=== PATIENT | female | born 1955 | race Caucasian/White ===

== ENCOUNTER → 2016-10-22 | Outpatient (CLI) | payer OTHER ==
--- NOTE | 2016-10-22 13:42 | DI ---
History: Hip pain. 5 view study. Prior examination 05/25/16. Findings: 3 level fusion with laminectomy of or L5-S1. Laminectomy extends from L3-L5. The left hip shows good acetabular coverage with preservation of joint space. Likewise on the right, there is good acetabular coverage.. There is a small stable calcification in the lateral aspect of th e femoral head, possibly corresponding with the labrum. It is unchanged from prior examination and me asures about 1 x 4 mm. Left hip shows good acetabular coverage of joint space preservation. Impression: No significant arthritic change is seen on either hip although there may be some labral c alcification on the right side, unchanged from prior study. Prior low back surgery, described in detail above
== END ==
LOC: ORTHO 12:10
PROVIDERS: ATTEND Orthopaedic Surgery
DX: M25.551 Pain in right hip (principal); M25.552 Pain in left hip; M70.62 Trochanteric bursitis, left hip; M70.61 Trochanteric bursitis, right hip
CPT/HCPCS: 73502

== ENCOUNTER → 2017-01-21 | Outpatient (CLI) | payer OTHER ==
--- NOTE | 2017-01-21 16:55 | DI ---
LUMBAR SPINE SERIES, 01/21/2017 1:05 PM: Clinical History: Lumbar pain. Previous Exam: 11/01/2014. Upright AP and lateral and upright lateral flexion and extension views are submitted. The vertebral b odies are of normal height and size. The patient is status post laminectomies from L3-L5 with anterio r and posterior fusions at L4-5 and L5-S1. Severe disc space narrowing is present at L2-3 and L3-4 an d these are narrower than on the previous study. In addition, marked sclerosis is developed in the an terior half of the L2 and L3 vertebral bodies at the L2-3 disc space. There is a grade 1 spondylolist hesis at L3-4. No instability is noted with flexion and extension maneuvers. The remaining pedicles a re normal. Extensive degenerative arthritic changes are present bilaterally in the L2-3 apophyseal uche ints. Both SI joints are normal. Readin. Status post laminectomies from L3-L5 with anterior and posterior fusions at L4-5 and L5-S1. Poste rior fusions are accomplished with metallic struts transfixed with pedicle screws between L4 and S1. 2. Progressive severe disc space narrowing has developed a L2-3 and L3-4. There is a grade 1 spondyl olisthesis at L3-4 but there is no instability with flexion and extension maneuvers. More sclerosis h as developed in the anterior aspect of the disc space at L2-3, but no motion is documented with flexi on and extension maneuvers.
--- NOTE | 2017-01-21 17:44 | DI ---
THORACIC AND LUMBAR MYELOGRAM, 01/21/2017 1:05 PM: Clinical History: Thoracic and low back pain. Previous Exam: 03/26/2016. A "time out" session verified the patient's name and date of . Informed signed consent was then obtained for this procedure. The patient was informed of benefits and risks, to include but not be li mited to: allergies to medications (skin preparation agents, local anesthetic, and contrast agent), i nfection, and "spinal" headaches. The lower back was prepped with ChloraPrep with Tint. 1% lidocaine without epinephrine was used for intradermal and subcutaneous local anesthesia. With fluoroscopy, a 2 2 gauge spinal needle introduced into the spinal canal in the midline over the body of L5 with a sing le pass that revealed droplets of clear colorless CSF. 10 ml of Omipaque 300 was injected into the sp inal canal with fluoroscopic monitoring. Spot films and overhead films of the thoracic and lumbar spi ne were obtained and the patient was transferred to the CT scan suite for the CT myelogram. Following the CT scan, the patient was observed in the department for approximately 1 hour. The patie nt was then discharged home with a laundry route driver and was instructed to minimize activity for the rest of the day. The patient was also instructed to push fluids for the remainder of the day and to sleep on an extra pillow with the head up if possible. The patient was advised to watch for signs of an infection (including but not limited to: redness, swelling, fever) or an unusually severe headache. The patien t was instructed to either contact the x-ray department directly or to report to the Emergency Room i mmediately if problems arose. THORACIC MYELOGRAM: The thoracic cord has a normal caliber. There are no nerve root sleeve amputation is noted although t he left side is not as well visualized as the right side because of artifacts from the patient's kuldip sts. There are anterior extradural defects at least from T5-6 T11-12 consistent with bulging but not herniated discs. LUMBAR MYELOGRAM: The patient is status post laminectomies from L3-L5 with anterior and posterior fusions at L4-5 and L 5-S1. There is no significant anterior extradural defect at T12-L1. There are anterior extradural def ects at L1-2 through L3-4 without nerve root sleeve amputations consistent with bulging but not herni ated discs. There is a grade 1 spondylolisthesis at L3-4. This or nerve root sleeve amputations at L4 -5 and L5-S1. Readin. The thoracic cord is normal in appearance. There are bulging but not herniated discs from at leas t T5-6 through T11-12. The T12-L1 disc space is normal. 2. Status post anterior and posterior fusions at L4-5 and L5-S1 with laminectomies from L3-L5. There is no canal stenosis and there are no nerve root sleeve amputations at L4-5 and L5-S1. 3. There are bulging but not herniated discs without canal stenosis at L1-2 through L3-4. L3-4 has a grade 1 spondylolisthesis.
--- NOTE | 2017-01-21 21:00 | DI ---
CT THORACIC SPINE SCAN WITH INTRATHECAL CONTRAST, 01/21/2017 1:05 PM : Clinical History: Thoracic back pain. Previous Exam: 03/26/2016. Scans are obtained from C6 to the mid body of L1 with intrathecal contrast. Sagittal and coronal refo rmatted images are generated.Curved coronal reformatted images and axial reformatted images angled th rough the disc spaces are also performed. The vertebral bodies are of normal height and size. There is moderate to severe disc space narrowing at every thoracic level. There are no fractures. Posterior alignment and posterior elements are kim l. Pedicles are normal. Paravertebral soft tissue planes are normal. The C6-7 through T2-3 disc spaces are normal. T3-4 through T11-12 disc spaces all have bulging but no t herniated discs without canal or neural foraminal stenosis. On the dorsal aspect of the canal on th e curved coronal images, the dorsal spinal arteries in the artery of Adamkiewicz are visualized and t hey are normal. The ventral spinal arteries are seen from approximately T8-T12 and those arteries are normal. There is no intradural extramedullary lesion. READIN. The thoracic cord and the conus medullaris are normal. There is no evidence of an intradural mass or tumor, and there is no intradural extramedullary lesion. 2. The disc spaces from T3-4 through T11-12 all have mild bulging but not herniated discs without ca nal or neural foraminal stenosis. 3. The disc spaces from C6-7 through T2-3 are normal.
--- NOTE | 2017-01-21 21:35 | DI ---
CT LUMBAR SPINE SCAN WITH INTRATHECAL CONTRAST, 01/21/2017 1:05 PM : Clinical History: Lumbar pain. Previous Exam: 03/26/2016. Scans are obtained from the mid body of T-12 to S4. without IV contrast. Sagittal and coronal reform atted images are generated. A metal artifact reduction sequence was also performed between the mid layo dy of L3 and S3. Sagittal and coronal reformatted images were also obtained from the sequence. The vertebral bodies are of normal height and size. There are laminectomies from L3-L5 with anterior and posterior fusions at L4-5 and L5-S1. Posterior fusions are accomplished with metallic struts dunbar sfixed with pedicle screws between L4 and S1 as well as bone grafts. The anterior and posterior fusio ns are solid. There is moderate disc space narrowing at T12-L1 and L1-2 with severe narrowing at L2-3 and L3-4. There is a grade 1 spondylolisthesis at L3-4. Degenerative arthritic changes are present i n both sacroiliac joints. T11-12 disc space has a bulging but not herniated disc without canal or neural foraminal stenosis. Th e T12-L1 disc space is normal. L1-2 has a very mild circumferentially bulging but not herniated disc and L2-3 has a larger bulging disc. There is no canal or neural foraminal stenosis at either level. L 3-4 has a bulging but not herniated disc without canal or neural foraminal stenosis with a grade 1 sp ondylolisthesis. The L4-5 and L5-S1 disc spaces show no canal stenosis or neural foraminal stenosis. On the coronal metal artifact reduction sequence, there is "clumping" of the nerve roots on the left side probably the S1 and S2 nerve roots and suggestion of similar clumping on the right side. 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 READIN. Status post laminectomies from L3-L5 with anterior and posterior fusions at L4-5 and L5-S1. The a nterior and posterior fusions are solid. There is no canal or neural foraminal stenosis at L4-5 or L5 -S1. There is clumping between the L4 and L5 levels with what probably are the left S1 and S2 nerve r oots. Similar changes are present on the right side and these findings are consistent with arachnoidi tis. 2. There is a grade 1 spondylolisthesis at L3-4 with a bulging but not herniated disc. There is no c anal or significant neural foraminal stenosis. 3. T11-12, L1-2, and L2-3 disc spaces have bulging but not herniated discs without canal or neural f oraminal stenosis. 4. The T12-L1 disc space is normal.
== END ==
LOC: RAD 13:02
PROVIDERS: ATTEND Neurological Surgery
DX: M54.5 Low back pain (principal); M43.16 Spondylolisthesis, lumbar region; M54.6 Pain in thoracic spine; Z98.1 Arthrodesis status
CPT/HCPCS: 72114; 72129; 72132; 72255; 72265

== ENCOUNTER → 2017-01-26 | Outpatient (CLI) | payer OTHER ==
--- NOTE | 2017-01-26 13:44 | DI ---
MRI LUMBAR SPINE SCAN WITHOUT IV CONTRAST, 01/26/2017 11:11 AM: Clinical History: Lumbar pain. Previous Exam: 09/22/2016. Technique: Sagittal and axial T2 weighted; sagittal T1 weighted and T2 STIR; and axial PD. There are extensive metallic artifacts in the lower lumbar spine at the location of the previous post erior fusion at L4-5 and L5-S1. The artifacts are most significant on the right side suggesting this patient had stainless steel implants in that she had a second procedure with replacement of the hardw are on the left side with titanium screws. The vertebral bodies from T9-L3 are of normal height and s ize. There are substantial artifacts involving L4-S1 that the integrity of those vertebral bodies can not be assessed. There is disc space narrowing at every level between T9-10 through L2-3 and probably at L3-4. The cord terminates at T12-L1, and the conus medullaris is normal. The T9-10 through T11-12 disc spaces show circumferentially bulging but not herniated discs without canal or neural foraminal stenosis. The T12-L1 disc space is normal. L1-2 has a circumferentially bulging but not herniated di sc without canal or neural foraminal stenosis with moderate degenerative changes of the apophyseal uche ints. L2-3 has a circumferentially bulging but not herniated disc without canal or right neural james inal stenosis. There is left neural foraminal stenosis and there are degenerative arthritic changes o f the apophyseal joints. The L3-4, L4-5 and L5-S1 levels cannot be evaluated because of the extensive metallic artifacts. Readin. Status post fusions at L4-5 and L5-S1. There are extensive metallic artifact suggesting the hardw are on the right side probably consists of stainless steel in the hardware in the left side is titani um. The disc spaces and the canal cannot be evaluated at these levels and at L3-4 because of the kari facts. 2. There is a bulging but not herniated disc at L2-3 without canal or right neural foraminal stenosi s. There is left neural foraminal stenosis. 3. There are bulging but not herniated discs without canal or neural foraminal stenosis at T9-10 thr ough T11-12 and at L1-2. L1-2 has arthritic changes involving the apophyseal joints bilaterally. 4. The T12-L1 disc space is normal.
== END ==
LOC: MRI 11:04
PROVIDERS: ATTEND Neurological Surgery
DX: M54.5 Low back pain (principal); M47.816 Spondylosis without myelopathy or radiculopathy, lumbar region; M47.814 Spondylosis without myelopathy or radiculopathy, thoracic region
CPT/HCPCS: 72148

== ENCOUNTER 2017-02-18 09:01 | Day surgery (SDC) | payer OTHER ==
[~2017-02-18 09:01] MED LIST: BUPivacaine Inj 0.25% PF - 10ml vial IV ONE; Iopamidol Inj 61% 50 ML VIAL IV ONE; TRIAMCINOLONE ACETONIDE 40 MG/1 ML IM ONE
--- NOTE | 2017-02-18 10:26 | GEN.OPNOTE ---
Facet Injection Procedure: Facet Injection with Local Anesthetic and Steriod Procedure Code - Neurosurgery: 48293 : L/S Spine Facet/Med, 1st, 91264 : L/S Spine Facet/Med, 2nd Surgeon: Guilherme Rodriguez -: Consent: Rationale for procedure, nature of procedure, possible risks and benefits were discussed with the patient. Risks including allergic reaction to medications, known effects of steroid medications including transient elevations in blood sugar with aggravation of pre-existing diabetes and remote risk of aseptic necrosis of the hip. Infection or bleeding with potential risk of neurologic injury with weakness, paralysis or were all reviewed with the patient who wished to proceed. Anesthesia, sedation: No intravenous access or sedation was used. Physiologic monitoring of pulse and oxygen saturation was utilized. Procedure: The patient was placed prone on the operating room table, prepped with Chloroprep and sterilely draped. The skin was anesthetized with 1% Buffered Xylocaine. Under fluoroscopic control a 22-gauge needle was advanced L23, and L34 facet joint on the right. Omnipaque was injected under real-time fluoroscopy demonstrating an facet arthrogram. Following this 1 ml of a mixture of kenalog 40mg/ml and Ropivacaine was injected. AP and lateral images of the final needle placement was obtained. The needle was removed and the patient returned to the post procedure recovery room where they were monitored for any side effects. The same was done on the left. Pain assessment: Preprocedure pain []/10, post procedure pain []/10. Discharge instructions: Patient was given a pain log to be filled out and returned. A delayed response to the steroids of 2-5 days was discussed. Diagnosis; Lumbar spondylosis
[2017-02-18 10:54] VITALS: RESP 22; TEMP 98.3
== END 2017-02-18 10:30 | disposition home or self-care (01) ==
LOC: SDSC 09:01
PROVIDERS: ATTEND Pain Medicine Interventional Pain Medicine
DX: M47.816 Spondylosis without myelopathy or radiculopathy, lumbar region (principal)
CPT/HCPCS: 76000

== ENCOUNTER 2017-02-26 16:35 | Emergency (ER) | payer OTHER ==
[2017-02-26] MEDS ORDERED: MEPERIDINE HCL/PF 100 MG/1 ML INJECTION IM ONE (18:24)
[2017-02-26] MEDS ORDERED: PROMETHAZINE 25 MG/1 ML VIAL IM ONE ×2 (18:30→18:33)
--- NOTE | 2017-02-26 19:34 | DI ---
HISTORY: Left hip pain and swelling. FINDINGS: Examination reveals mild demineralization and degenerative arthritic changes. There is no definite evidence of recent fracture or dislocation. IMPRESSION: 1. No acute fracture identified. Clinical correlation is requested. 2. Mild demineralization and degenerative arthritic changes.
--- NOTE | 2017-02-26 20:02 | DI ---
HISTORY: Left hip pain. No known trauma. TECHNIQUE: Contiguous axial images of the left hip were obtained and submitted for interpretation. FINDINGS: There is evidence of moderate joint space narrowing and osteophyte formation in the left h ip. Soft tissue edema is identified in the left hip. There is a possible hematoma adjacent to the g reater trochanter. No displaced fracture is identified. IMPRESSION: 1. Soft tissue edema and possible hematoma without evidence of acute displaced fracture. Nondisplac ed fractures are hard to exclude; if further evaluation is warranted, MRI can be obtained.
[2017-02-26] MEDS ORDERED: oxyCODONE/APAP 10/325 Tab 1 EACH TAB PO SCH (20:45)
[2017-02-26 21:50] VITALS: TEMP 98.4
--- NOTE | 2017-02-27 01:16 | PDOC ---
Hip Injury/Pain HPI - General Chief Complaint: Lower Extremity Problem/Injury Stated Complaint: CHRONIC L HIP PAIN/SWELLING, WORSE LAST WEEKEND Date Seen by Provider: 02/26/17 Time Seen by Provider: 18:00 Source: POSITIVE: Patient Exam Limitations: POSITIVE: No limitations Nurse's Notes Reviewed & Considered: Yes - History of Present Illness Initial Comments: The patient is a 61 year old female. She complains of pain over the lateral and posterior aspect of her left hip for the past week. Patient states that she has a history of chronic left hip pain, present "for years". She also has a history of chronic low back pain for which he takes oxycodone. She has had low back surgery in the past. She states she has diabetes mellitus with neuropathy and decreased sensation in her feet. Patient states that she has a history of asthma and is tapering off prednisone. She had a nerve block for her low back pain one week ago; patient states she has not had any improvement in her chronic back pain. She states she has fallen 5 times since August, but she does not recall any recent falls or trauma. Have you received a tetanus shot in the past 10 years?: Yes Location: Left Hip Timing: REPORTS: Constant Duration: <1 week (Approximately one week) Severity: Moderate Location at Time of Onset: REPORTS: Home Context: DENIES: Fall, Tripped, Slipped, Lost Balance, Fainted, Other Concurrent Injuries: DENIES: Neck, Head, Back, Chest, Abdomen, Extremities, Face , Other Quality: REPORTS: "Pain" Modifying Factors: REPORTS: Other (Pain is exacerbated by direct palpation over lateral aspect of hip and greater trochanter.) Symptoms Prior to Fall: DENIES: Fever, Chills, Diaphoresis, Diaphoresis, Chest Pain, Weakness, Rapid Heart Rate, Nausea, Vomiting, Diarrhea, Dizziness, Light- Headedness, Headache, Seizure, Other Subsequent Symptoms: DENIES: Sensory Loss, Motor Loss, Numbness, Weakness, Bowel / Bladder Problems, Other Similar Symptoms Previously: Yes (history of chronic left hip pain) Recent Care Received: REPORTS: Recently Seen, Treated by MD (As above) Any Prior Injuries Related to Current Complaint?: No - Patient Home Medications Home Medications: Home Medications Duloxetine HCl [Cymbalta] 60 mg PO QAM 04/10/11 Cyclobenzaprine HCl 10 mg PO PRN tab 03/30/13 Albuterol/Ipratrop Neb Soln [Duoneb Neb Soln] 1 unit NEB Q4-6H PRN #30 unit 07/25 Oxygen (O2) 1 unit HS #2 unit 01/21/15 Gabapentin 2 unit PO TID #540 tab 07/10/15 predniSONE Tab [Deltasone Tab] 3 tab PO day one #10 tab 07/30/15 Albuterol Sulfate [Ventolin Hfa] 1 - 2 puff INH Q4-6H #1 inhaler 09/10/15 Montelukast Sodium [Singulair] 1 unit PO QD #90 tab 04/08/16 Tiotropium Sugar Tree [Spiriva] 2 puff INH DAILY inh 05/25/16 Liraglutide [Victoza 3-Asad] 0.6 mg SUBCUT DAILY ml 06/08/16 Lancets 1 each MC BID #180 unit 07/01/16 Hydrocodone/Acetaminophen [Hydrocodon-Acetaminophn 10-325] 1 tab PO Q4-6H #90 tab 09/28/16 Methotrexate Sodium [Methotrexate] 3 tab PO WEEKLY tab 10/22/16 Fluticasone/Vilanterol [Breo Ellipta 100-25 Mcg Inh] Sample #1 12/25/16 Mometasone/Formoterol [Dulera 200 Mcg/5 Mcg Inhaler] Sample #3 12/25/16 Metformin HCl 2 tab PO BID #60 tab 02/01/17 Estrogens,Conjugated [Premarin] 1 unit PO QD #14 tab 02/18/17 Oxycodone HCl/Acetaminophen [Oxycodone-Acetaminophen 10-325] 1 each PO Q4H PRN # 20 tablet 02/26/17 - Patient Allergies Allergies/Adverse Reactions: Allergies Allergy/AdvReac Type Severity Reaction Status Date / Time cefuroxime axetil Allergy Severe ANAPHLAXIS Verified 02/26/17 16:47 [From Ceftin] cephalexin Allergy Severe Anaphylaxis Verified 02/26/17 16:47 Penicillins Allergy Mild RASH Verified 02/26/17 16:47 moxifloxacin HCl Allergy Unknown Anaphylaxis Verified 02/26/17 16:47 [From Avelox] Past Medical History - heen HEENT History: Denies History Additional Cardiovasular History: AAA, Respiratory History: Home Oxygen Use Additional Gastrointestinal History: AAA Genitourinary History: Denies History Endocrine History: Type 2 Diabetes (oral) Musculoskeletal History: Back Pain Prosthesis or Implant: No Additional Musculoskeletal History: DDD Additional Neurological History: CIDP, TREMORS Blood Disorders: Denies History Psychiatric History: Denies History Female Reproductive History: Denies History Obstetrical History: Denies History Cancer History: Denies History In Past Year Been Physically Harmed or Verbally Threatened: No History of MDRO: No Tobacco Use: Never Smoker Alcohol Use: None Substance Use Type: None Previous Surgical History: Yes Type / Date of Surgery: C HYST, LUMBAR FUSION, APPY, RUPTURE COLON REPAIR, INCISIONAL HERNIA REPAIR, DISCECTOMY, LUMBAR FUSION Significant Family History: No pertinent family hx Past Medical History Reviewed: Reviewed - No Changes ROS - Limitations ROS Limitations: No Limitations Constitution: REPORTS: Denies Symptoms Cardiovascular: REPORTS: Denies Cardiac Symptoms Respiratory: REPORTS: Denies Resp Symptoms Neurological: REPORTS: Denies Neuro Symptoms Gastrointestinal: REPORTS: Denies GI Symptoms Endocrine: REPORTS: Denies Symptoms Musculoskeletal: REPORTS: Joint Pain (Left hip) Genitourinary: REPORTS: Denies Symptoms Eyes: REPORTS: Denies Symptoms ENT: REPORTS: Denies Symptoms Skin: REPORTS: Denies Skin Symptoms Lympathic: REPORTS: Denies Lympathic Symptoms Immunologic: POSITIVE: Denies Symptoms Psychiatric: POSITIVE: Denies Psych Symptoms Hip Injury / Pain Exam - General Appearance General Appearance: POSITIVE: Alert, Cooperative, No Acute Distress, No Evidence of Trauma - Lower Extremity Extremities: POSITIVE: Normal ROM, No Pedal Edema, No Obvious Injury to Knee, No Deformity to Knee, Normal Tendon Exam, Hip/Knee Tenderness (Pain on palpation over greater trochanter of left hip. Pain is exacerbated by abduction of left hip.). NEGATIVE: Shortening of Leg, External Rotation of Leg , Hip Pain on Leg Movement, Pedal Edema, Ecchymosis, Erythema, Soft Tissue Injury, Positive David's Sign - HEENT HEENT: POSITIVE: Head Inspection Nml, Eyes Inspection Nml, Ears Inspection Nml, Nose Inspection Nml, Oral/Dental Inspect. Nml, Pharynx Inspect. Nml, PERRL, EOMI - Pupil Size Pupil Size: 4 mm: Bilateral (PERRTL) - Neck/Back Neck: POSITIVE: Normal Inspection, Non-Tender Back: POSITIVE: No CVA Tenderness, No Vertebral Tenderness, Limited ROM, See Diagram. NEGATIVE: Normal Inspection (Well-healed surgical scar over her lumbar spine), Non Tender (Discomfort on firm palpation lower paralumbar musculature), Painless ROM, Vertebral Pt. Tenderness, CVA Tenderness (R), CVA Tenderness (L), Muscle Spasm - Respiratory / CVS Cardiovascular: POSITIVE: Regular Rate and Rhythm, Heart Sounds Normal, Equal Pulses, Strong Pulses, No Murmur, No Gallop, No JVD, No Pulse Deficit Respiratory: POSITIVE: Chest Non Tender, No Ecchymosis, Breath Sounds Normal, No Respiratory Distress Peripheral Pulses: Radial (R): 2+, Radial (L): 2+ - Abdomen Abdomen: Soft: (All Quadrants), Normal Bowel Sounds: (All Quadrants), Denies Tenderness: (All Quadrants), No Splenomegaly: (All Quadrants), No Hepatomegaly: (All Quadrants), No Guarding: (All Quadrants), No Rebound: (All Quadrants), No Palpable Pulse: (All Quadrants), No Palpabale Mass: (All Quadrants), No Distention: (All Quadrants), No Rigidity: (All Quadrants) - Skin Skin: POSITIVE: Color Normal, No Rash, Warm, Dry, Normal Palpation - Neuro/Psych Neuro / Psych: POSITIVE: Oriented x 3, Neuro Grossly Intact, Mood Appropriate, Affect Appropriate Images - Complete Complete: 1 - Pain on palpation over greater trochanter and distribution of trochanteric bursa 2 - Chronic low back pain Hip Injury / Pain Progress - Results Reviewed by me Xrays/CTs/US Reviewed by me: Yes Discussed with Radiologist: Yes Radiology Findings: X-ray left hip normal except for some degenerative changes. CT of left hip shows some soft tissue swelling and radiographically a possible hematoma over the greater trochanter. - Patient's Progress Pain Medication Addressed: POSITIVE: Yes (Patient given Demerol with Phenergan IM with good relief of pain) School/Work Release Addressed: POSITIVE: Not Applicable Re-Examine Time: 20:15 Re-Examine Comment: Patient symptomatically improved on discharge. Status: POSITIVE: Improved, Re-Examined - Consult Counseled: POSITIVE: Patient, RE: Radiology Results, RE: DX, RE: Need for F/U Patient Care Time - Estimated PCT Patient Care Time (In Minutes): 50 Vital Signs - Recent Vital Signs Vital Signs: Vital Signs (Last 8 hours) Temp 02/26/17 18:30 98.4 F Blood pressure 130/98, heart rate 104, respiratory rate 20, temperature 98.4F, oxygen saturation on room air 93%. - VS Reviewed Vital Signs Reviewed: Yes Discharge Clinical Impression: Hip pain, Trochanteric bursitis Discharge Disposition: Discharged to Home Condition: Stable Prescriptions / Orders: Oxycodone HCl/Acetaminophen [Oxycodone-Acetaminophen 10-325] 1 each PO Q4H PRN # 20 tablet PRN Reason: Pain Patient Instructions Given at Discharge: Hip Bursitis (ED) Additional Instructions: I believe you probably have what is known as trochanteric bursitis to your left hip. Use your walker and bear no weight on your left leg. Follow-up in orthopedic clinic Wednesday. Oxycodone/APAP, one every 4 hours as necessary for pain. Return here anytime if condition worsens. Follow Up With: NONE,NONE [Primary Care Provider] - (Instructions as above. Follow-up with primary care provider and orthopedist Wednesday. Return here anytime if condition worsens.)
== END 2017-02-26 20:36 | disposition home or self-care (01) ==
LOC: ER 16:35
DX: M70.62 Trochanteric bursitis, left hip (principal); M54.5 Low back pain; M25.552 Pain in left hip; E11.40 Type 2 diabetes mellitus with diabetic neuropathy, unspecified
CPT/HCPCS: 73502; 73700; 96372; 99283; J2175; J2550

== ENCOUNTER 2017-03-02 17:25 | Emergency (ER) | payer OTHER ==
[2017-03-02] MEDS ORDERED: Sodium Chloride 0.9% 1,000 ML PRIMARY IV ONE (17:30)
[2017-03-02] MEDS ORDERED: ONDANSETRON 4 MG/2 ML VIAL IVP ONE (17:30)
[2017-03-02] MEDS ORDERED: MORPHINE SULFATE 4 MG/1 ML IVP ONE (17:30)
--- NOTE | 2017-03-02 18:24 | PDOC ---
Gen Adult / Medical Screen HPI - General Chief Complaint: General Medical Stated Complaint: LIGHT HEADED / LEFT BUTTOCKS HEMATOMA Date Seen by Provider: 03/02/17 Time Seen by Provider: 18:19 Source: POSITIVE: Patient, RN/MD Exam Limitations: POSITIVE: No limitations Nurse's Notes Reviewed & Considered: Yes - Indicators Temperature Between 95 and 101 Degrees: Yes Respirations Between 12 and 20: Yes Blood Pressure Between 100-165 (sys) and 60-100 (amador): Yes Pulse Range Between 60-105 (100 for age > 60 years): Yes Severe Pain (Greater than 5/10 Reported): Yes Chest or Abdominal Pain: No Inability to Walk: No Pt Reports Active High Risk Cond. (TB/Hepatitis/HIV/Chemo): No - History of Present Illness Initial Comments: Patient comes in today with chief complaint of swelling, bruising, and increasing pain left hip. Patient had facet injections done on the or of this month since that time she's had increasing pain, swelling, and bruising present in her left hip. CT scan done on her hip shows hematoma present. She is directed to the emergency department because she now has dizziness, increasing pain, and increased bruising. Body Location Affected: REPORTS: Lower Extremity (L) Timing: REPORTS: Constant Duration: >1 week Similar Symptoms Previously: Yes Recent Care Received: REPORTS: Recently Seen Any Prior Injuries Related to Current Complaint?: No - Patient Home Medications Home Medications: Home Medications Duloxetine HCl [Cymbalta] 60 mg PO QAM 04/10/11 Albuterol/Ipratrop Neb Soln [Duoneb Neb Soln] 1 unit NEB Q4-6H PRN #30 unit 07/25 Oxygen (O2) 1 unit HS #2 unit 01/21/15 Gabapentin 2 unit PO TID #540 tab 07/10/15 predniSONE Tab [Deltasone Tab] 3 tab PO day one #10 tab 07/30/15 Albuterol Sulfate [Ventolin Hfa] 1 - 2 puff INH Q4-6H #1 inhaler 09/10/15 Montelukast Sodium [Singulair] 1 unit PO QD #90 tab 04/08/16 Tiotropium [place] [Spiriva] 2 puff INH DAILY inh 05/25/16 Liraglutide [Victoza 3-Asad] 0.6 mg SUBCUT DAILY ml 06/08/16 Lancets 1 each MC BID #180 unit 07/01/16 Methotrexate Sodium [Methotrexate] 3 tab PO WEEKLY tab 10/22/16 Fluticasone/Vilanterol [Breo Ellipta 100-25 Mcg Inh] Sample #1 12/25/16 Mometasone/Formoterol [Dulera 200 Mcg/5 Mcg Inhaler] Sample #3 12/25/16 Metformin HCl 2 tab PO BID #60 tab 02/01/17 Estrogens,Conjugated [Premarin] 1 unit PO QD #14 tab 02/18/17 Oxycodone HCl/Acetaminophen [Oxycodone-Acetaminophen 10-325] 1 each PO Q4H PRN # 20 tablet 02/26/17 - Patient Allergies Allergies/Adverse Reactions: Allergies Allergy/AdvReac Type Severity Reaction Status Date / Time cefuroxime axetil Allergy Severe ANAPHLAXIS Verified 03/02/17 18:30 [From Ceftin] cephalexin Allergy Severe Anaphylaxis Verified 03/02/17 18:30 Penicillins Allergy Mild RASH Verified 03/02/17 18:30 moxifloxacin HCl Allergy Unknown Anaphylaxis Verified 03/02/17 18:30 [From Avelox] Past Medical History - heen HEENT History: Denies History Cardiovascular History: Denies History Additional Cardiovasular History: AAA, Respiratory History: Home Oxygen Use Additional Gastrointestinal History: AAA Genitourinary History: Denies History Endocrine History: Type 2 Diabetes (oral) Musculoskeletal History: Back Pain Prosthesis or Implant: No Additional Musculoskeletal History: DDD Additional Neurological History: CIDP, TREMORS Blood Disorders: Denies History Psychiatric History: Denies History Cancer History: Denies History History of MDRO: No Alcohol Use: None Substance Use Type: None Previous Surgical History: Yes Type / Date of Surgery: C HYST, LUMBAR FUSION, APPY, RUPTURE COLON REPAIR, INCISIONAL HERNIA REPAIR, DISCECTOMY, LUMBAR FUSION Significant Family History: No pertinent family hx ROS - Limitations ROS Limitations: No Limitations Constitution: REPORTS: Denies Symptoms Cardiovascular: REPORTS: Denies Cardiac Symptoms Respiratory: REPORTS: Denies Resp Symptoms Neurological: REPORTS: Dizziness Gastrointestinal: REPORTS: Denies GI Symptoms Endocrine: REPORTS: Denies Symptoms Musculoskeletal: REPORTS: Joint Pain (Left hip with bruising), Lower Extremity Swelling Genitourinary: REPORTS: Denies Symptoms Eyes: REPORTS: Denies Symptoms ENT: REPORTS: Denies Symptoms Skin: REPORTS: Excessive Bruising (Left hip) Lympathic: REPORTS: Denies Lympathic Symptoms Immunologic: POSITIVE: Denies Symptoms Psychiatric: POSITIVE: Denies Psych Symptoms Gen Adult/Medical Screen Exam - General Appearance General Appearance: POSITIVE: Alert, Cooperative, Moderate Distress - HEENT HEENT: POSITIVE: Head Inspection Nml, Eyes Inspection Nml, Ears Inspection Nml, Nose Inspection Nml, PERRL, EOMI - Pupils Pupil Size: 4 mm: Bilateral - Neck Neck: POSITIVE: Normal Inspection, Thyroid Normal - Respiratory Respiratory: POSITIVE: No Respiratory Distress, Breath Sounds Normal, Chest Non- Tender - Cardiovascular Cardiovascular: POSITIVE: Regular Rate & Rhythm, No Murmur, No Gallop, PMI Normal - Abdomen Abdomen: Soft: (All Quadrants), Normal Bowel Sounds: (All Quadrants), Denies Tenderness: (All Quadrants) - Back Back: POSITIVE: Normal Inspection - Neurological / Psychological Mental Status: POSITIVE: Mood Normal, Affect Normal Orientation: POSITIVE: Oriented x 3 - Skin Skin: POSITIVE: Normal Color, Warm, Dry, No Rash - Extremities Extremity: Non-Tender: (RUE), (LUE), (RLE), Normal ROM: (RUE), (LUE), (RLE), Normal Inspection: (RUE), (LUE), (RLE), Pelvis Stable: (All Extremities), Edema / Swelling: (LLE) (left hip), Tender: (LLE), Ecchymosis: (LLE) Gen Adlt/Medical Scrn Progress - Results Reviewed by me Xrays/CTs/US Reviewed by me: Yes Discussed with Radiologist: Yes Lab Results Reviewed: Yes Lab Results:: Laboratory Results 03/02/17 Range/Units 18:40 WBC 11.61 H (4.8-10.8) 10^3/uL RBC 3.73 L (4.20-5.40) 10^6/uL Hgb 11.6 L (12.0-16.0) g/dL Hct 36.0 L (37.0-47.0) % MCV 96.5 (81-99) FL MCH 31.1 H (27-31) PG MCHC 32.2 L (33-37) g/dL RDW Std Deviation 46.1 (39-50) fL RDW Coeff of Karsten 14.3 (11.5-14.5) % Plt Count 416 H (140-350) 10*3/uL MPV 8.2 (7.4-12.2) FL Immature Gran % (Auto) 1.0 (0-5) % Neut % (Auto) 69.1 (50-80) % Lymph % (Auto) 19.2 (10-50) % Tillman % (Auto) 9.5 (5-15) % Eos % (Auto) 0.9 (0-8) % Baso % (Auto) 0.3 (0-1) % Immature Gran # (Auto) 0.12 10*3/UL Neut # (Auto) 8.01 10*3/UL Lymph # (Auto) 2.23 10*3/uL Tillman # (Auto) 1.10 H (0.3-0.8) 10*3/UL Eos # (Auto) 0.11 10*3/UL Baso # (Auto) 0.04 10*3/UL WBC Morphology Comment Normal morphology (NORM) Plt Morphology Comment Normal morphology (NORM) RBC Morph Comment Normal morphology (NORM) PT 10.2 (9.7-11.4) secs INR 0.99 (0.00-5.90) N/A Sodium 136 (135-145) meq/L Potassium 3.7 L (3.8-5.2) meq/L Chloride 101 (98-112) meq/L Carbon Dioxide 27 (23-33) meq/L Anion Gap 8 (5-20) BUN 20 (7-22) mg/dL Creatinine 0.7 (0.50-1.20) mg/dL Estimated GFR > 60 (>60 ml/min/1.73m(2)) BUN/Creatinine Ratio 28.57 H (6-20) Glucose 141 H (78-110) mg/dL Calculated Osmolality 286.0 (267-292) mOsm/kg Calcium 9.1 (8.7-10.7) mg/dL Total Bilirubin 1.1 (0.3-1.2) mg/dL AST 29 (8-39) IU/L ALT 51 (9-52) IU/L Alkaline Phosphatase 100 (38-126) IU/L C-Reactive Protein 4.0 H (0.0-0.9) mg/dL Total Protein 6.5 (6.1-8.0) g/dL Albumin 3.6 (3.5-4.8) g/dL Globulin 2.9 (2.50-4.10) g/dL Albumin/Globulin Ratio 1.20 L (1.3-2.0) mg/g - Patient's Progress Pain Medication Addressed: POSITIVE: Yes Re-Examine Time: 20:44 Status: POSITIVE: Improved MDM / ED Course: Patient was evaluated, an IV started, blood drawn and sent to the lab for studies, radiographic examinations were obtained. Patient received morphine sulfate, normal saline, and Zofran via IV. Findings: CBC shows white count of 13.6 platelets are elevated at 416. PT and INR are normal. Comprehensive metabolic panel is unremarkable. CT scan of her abdomen and pelvis shows hematoma formation in the left piriformis and left gluteus medius. There does not appear to be tracking from the level of L4-L5 where the facet injection occurred. Assessment: Hematoma left hip. Plan: I discussed this patient with Dr. Kinney the on-call orthopedic surgeon who is recommending interventional radiology drain placement. I have contacted [facility] [place] who is graciously accepted this patient and she is being transferred for higher level of care. - Consult Consult (If Yes, Name of Consulting MD & Time Called): Yes (Dr Kinney [phone]) Consulting MD will see pt:: POSITIVE: Recommended Transfer Counseled: POSITIVE: Patient, RE: Lab Results, RE: Radiology Results, RE: DX Patient Care Time - Estimated PCT Patient Care Time (In Minutes): 45 Vital Signs - Recent Vital Signs Vital Signs: Vital Signs (Last 8 hours) Temp Pulse Resp BP Pulse Ox 03/02/17 19:45 20 96 03/02/17 18:00 98.7 F 94 18 125/85 96 - VS Reviewed Vital Signs Reviewed: Yes Discharge Clinical Impression: Hematoma of left hip Discharge Disposition: Transferred to Tertiary Care Facility Condition: Stable Date Decision to Transfer to Another Facility: 03/02/17 Time Decision to Transfer to Another Facility: 20:40
[2017-03-02 18:43] LABS: BASOPHILS # (AUTO) 0.04 10*3/UL; BASOPHILS % (AUTO) 0.3 % (0-1); EOSINOPHILS # (AUTO) 0.11 10*3/UL; EOSINOPHILS % (AUTO) 0.9 % (0-8); HEMOGLOBIN 11.6 g/dL (12.0-16.0); LYMPHOCYTES # (AUTO) 2.23 10*3/uL; MEAN CORPUSCULAR HEMOGLOBIN 31.1 PG (27-31); MEAN CORPUSCULAR HGB CONC 32.2 g/dL (33-37); MEAN CORPUSCULAR VOLUME 96.5 FL (81-99); MEAN PLATELET VOLUME 8.2 FL (7.4-12.2); MONOCYTES % (AUTO) 9.5 % (5-15); NEUTROPHILS # (AUTO) 8.01 10*3/UL; NEUTROPHILS % (AUTO) 69.1 % (50-80); RED BLOOD COUNT 3.73 10^6/uL (4.20-5.40)
[2017-03-02 18:44] LABS: PLATELET MORPHOLOGY COMMENT NORMAL MORPHOLOGY (NORM); RBC MORPHOLOGY COMMENT NORMAL MORPHOLOGY (NORM); WBC MORPHOLOGY COMMENT NORMAL MORPHOLOGY (NORM)
[2017-03-02 18:55] LABS: BLOOD UREA NITROGEN 20 mg/dL (7-22); BUN/CREATININE RATIO 28.57 (6-20); CALCIUM 9.1 mg/dL (8.7-10.7); EST GLOMERULAR FILTRATION > 60 (>60 ml/min/1.73m(2)); SERUM ALBUMIN 3.6 g/dL (3.5-4.8)
[2017-03-02] MEDS ORDERED: oxyCODONE-ACETAMINOPHEN 5-325 TAB PO ONE ×2 (20:06→20:09)
--- NOTE | 2017-03-02 20:39 | DI ---
CT ABDOMEN SCAN WITHOUT IV CONTRAST, 03/02/2017 5:30 PM : Clinical History: Evaluation of a hematoma in proximity to the left hip. Previous Exam: 12/26/2009, and a CT scan of the left hip from 02/26/2017. Scans are performed from the lower lung bases through the liver and kidneys without IV contrast. Sagi ttal and coronal reformatted images are generated. The lung bases are clear. There is mild hepatomegaly with diffuse fatty infiltration of the liver. Th e gallbladder is grossly normal. There is no abnormality of the spleen, pancreas, and adrenal glands. Both kidneys are normal in size, shape, position and contour. There is no hydronephrosis or hydroure ter. No renal or ureteral calculi are present. There are no abnormal retrocrural or periaortic nodes. No ascites is present. The psoas and quadratus lumborum muscles are atrophic but normal. READING: Except for diffuse fatty infiltration with mild hepatomegaly, the study is normal. CT PELVIS SCAN WITHOUT IV CONTRAST, 03/02/2017 5:30 PM : Clinical History: See above. Previous Exam: 12/26/2009; a CT scan of the left hip from 02/26/2017. Scans are performed from the inferior margin of the liver and kidneys to the symphysis pubis without IV contrast. There is no free fluid collection and there is no adenopathy. The appendix is not visualized with cer tainty but there is no inflammatory mass either in the cecal tip or in the right lower quadrant. The small bowel, terminal ileum, and ileocecal valve are normal. The colon is also normal. There are no h ernias. The patient is status post hysterectomy and bilateral salpingo-oophorectomy. Scans through the muscles surrounding the pelvis again demonstrate the hematoma within the gluteus me dius muscle and also the piriformis muscle. Both of these muscles are enlarged secondary to the hemat omas. There is no evidence of a hematoma in the multifidus or rectus spine muscles in proximity to th e lumbar spine were the patient has had a recent facet injections. Except for diffuse atrophy of the muscles of the pelvis and surrounding the hips, no soft tissue abnormalities are present. There is so me stranding in the subcutaneous fat lateral to the left hip corresponding to the ecchymoses seen cli nically. READIN. The hematomas involving the left gluteus medius muscle in the left piriformis muscle are unchange d from the prior exam of the left hip from 02/26/2017. There is no evidence to indicate the origin of these hematomas are associated with the recent spine injections because there is no hematoma either i n the retroperitoneal space or involving the erector spinae muscles in the multifidus muscles. The ex act etiology for the hematoma is in the gluteus medius muscle in the left piriformis muscle in the ec chymoses over the left hip region is unknown. 2. The remainder of the examination is normal.
[2017-03-02 21:25] VITALS: RESP 18; TEMP 97.2
== END 2017-03-02 21:10 | disposition short-term general hospital (02) ==
LOC: ER 17:25
DX: S90.32XA Contusion of left foot, initial encounter (principal); M25.552 Pain in left hip; E11.9 Type 2 diabetes mellitus without complications
CPT/HCPCS: 74176; 80053; 85025; 85610; 86140; 96374; 96375; 99283; J2270; J2405; J7030

== ENCOUNTER → 2017-03-12 | Outpatient (CLI) | payer OTHER ==
[2017-03-12 13:10] LABS: BASOPHILS # (AUTO) 0.02 10*3/UL; BASOPHILS % (AUTO) 0.4 % (0-1); EOSINOPHILS # (AUTO) 0.08 10*3/UL; EOSINOPHILS % (AUTO) 1.5 % (0-8); HEMATOCRIT 39.2 % (37.0-47.0); HEMOGLOBIN 12.4 g/dL (12.0-16.0); LYMPHOCYTES # (AUTO) 1.76 10*3/uL; MEAN CORPUSCULAR HEMOGLOBIN 30.5 PG (27-31); MEAN CORPUSCULAR HGB CONC 31.6 g/dL (33-37); MEAN CORPUSCULAR VOLUME 96.3 FL (81-99); MONOCYTES # (AUTO) 0.63 10*3/UL (0.3-0.8); MONOCYTES % (AUTO) 11.6 % (5-15); NEUTROPHILS # (AUTO) 2.93 10*3/UL; NEUTROPHILS % (AUTO) 53.6 % (50-80); RED BLOOD COUNT 4.07 10^6/uL (4.20-5.40)
[2017-03-12 13:13] LABS: BLOOD UREA NITROGEN 19 mg/dL (7-22); BUN/CREATININE RATIO 27.14 (6-20); CALCIUM 9.3 mg/dL (8.7-10.7); EST GLOMERULAR FILTRATION > 60 (>60 ml/min/1.73m(2)); SERUM ALBUMIN 3.7 g/dL (3.5-4.8)
[2017-03-12 13:16] LABS: CHOL/HDL RATIO 2.82 RATIO (0-4.0); LDL CHOLESTEROL,CALCULATED 79.8 mg/dL
[2017-03-12 13:17] LABS: CREATININE, URINE 343.9 MG/DL (15-500)
[2017-03-12 13:20] LABS: PLATELET MORPHOLOGY COMMENT NORMAL MORPHOLOGY (NORM); RBC MORPHOLOGY COMMENT NORMAL MORPHOLOGY (NORM); WBC MORPHOLOGY COMMENT NORMAL MORPHOLOGY (NORM)
== END ==
LOC: LAB 11:05
PROVIDERS: ATTEND Nurse Practitioner Family
DX: E11.9 Type 2 diabetes mellitus without complications (principal); I25.10 Atherosclerotic heart disease of native coronary artery without angina pectoris
CPT/HCPCS: 80053; 80061; 82043; 83036; 85025

== ENCOUNTER → 2017-03-29 | Outpatient (CLI) | payer OTHER | LOC: LAB 11:45 | PROVIDERS: ATTEND Nurse Practitioner Family | DX: R30.0 Dysuria (principal) | CPT/HCPCS: 87088; 87185; 87205 ==

== ENCOUNTER → 2017-06-02 | Outpatient (CLI) | payer OTHER ==
[2017-06-02 16:34] LABS: HEMATOCRIT 45.9 % (37.0-47.0); HEMOGLOBIN 15.2 g/dL (12.0-16.0); MEAN CORPUSCULAR HEMOGLOBIN 30.3 PG (27-31); MEAN CORPUSCULAR HGB CONC 33.1 g/dL (33-37); MEAN CORPUSCULAR VOLUME 91.4 FL (81-99); MEAN PLATELET VOLUME 9.4 FL (7.4-12.2); RED BLOOD COUNT 5.02 10^6/uL (4.20-5.40)
[2017-06-02 16:48] LABS: BLOOD UREA NITROGEN 17 mg/dL (7-22); BUN/CREATININE RATIO 24.28 (6-20); CALCIUM 10.4 mg/dL (8.7-10.7); EST GLOMERULAR FILTRATION > 60 (>60 ml/min/1.73m(2))
[2017-06-02 16:57] LABS: BILIRUBIN,URINE SMALL (NEG); CLARITY,URINE CLEAR (CLEAR); COLOR,URINE YELLOW; GLUCOSE, URINE (UA) NEGATIVE (NEG); NITRATE,URINE NEGATIVE (NEG); OCCULT BLOOD,URINE NEGATIVE (NEG); PH,URINE 5.5 (5.0-8.5); PROTEIN,URINE NEGATIVE (NEG); UROBILINOGEN,URINE 0.2 mg/dL (0.2)
[2017-06-02 17:07] LABS: BACTERIA,URINE RARE; SQUAMOUS EPITHELIAL CELL,UR MANY; URINE SAMPLE TYPE CLEAN CATCH URINE
== END ==
LOC: LAB 13:15
PROVIDERS: ATTEND Nurse Practitioner Family
DX: Z01.812 Encounter for preprocedural laboratory examination (principal); M47.26 Other spondylosis with radiculopathy, lumbar region
CPT/HCPCS: 80048; 81001; 85027; 85610; 85730